=== PATIENT | female | born 1970 | race American Indian/Alaskan Native ===

== ENCOUNTER 2018-08-13 08:17 | Day surgery (SDC) | payer BC ==
[2018-08-13] MEDS ORDERED: VERSED IV ONE (08:44)
[2018-08-13] MEDS ORDERED: SUBLIMAZE IV ONE (08:44)
[2018-08-13 09:36] LABS: Hematocrit 37.5 % (30.3-42.9); Hemoglobin 12.4 gm/dl (10.1-14.3); Mean Corpuscular HGB Conc 33 % (30-34); Mean Corpuscular Volume 99 fl (79-97); Platelet Count 188 K/mm3 (140-440); Red Cell Distribution Width 13.6 % (13.2-15.2)
[2018-08-13 09:38] LABS: INR 0.85 (0.87-1.13)
[2018-08-13 09:39] LABS: Partial Thromboplastin Time 32.4 Sec. (24.2-36.6)
[2018-08-13 10:30] LABS: Total Cells Counted 100
[2018-08-13 10:31] LABS: Platelet Estimate Consistent w Auto; RBC Morphology Normal
--- NOTE | 2018-08-13 11:55 | Cat Scan Report ---
CT BIOPSY LUNG LEFT History: Breast cancer, multiple lung masses. Description of procedure: Informed consent was obtained. Sterile technique was utilized. 1% lidocaine for skin anesthesia. Moderate sedation was accomplished with Versed and fentanyl. The patient was sedated for 20 minutes. Intraobserver time of 15 minutes. Independent cardiorespiratory monitoring by RN. Using CT guidance, a 19-gauge introducer needle was advanced to the leading edge of a 1 cm nodule in the posterior segment of the left lower lobe. 5 separate 2.2 cm 20-gauge core biopsies were obtained. Pathology was present and deemed the sample adequate although scant due to the nodule's small size. The patient tolerated the procedure without difficulty. A followup chest x-ray was ordered. Impression: Successful CT-guided biopsy of a 1 cm left lower lobe nodule.
[2018-08-13] MEDS ORDERED: NORCO 5/325 ONE (12:59)
[2018-08-13 13:01] VITALS: BP 103/69
--- NOTE | 2018-08-13 13:04 | XRay Report ---
AP CHEST: HISTORY: Lung mass, recent CT-guided biopsy Recent CT-guided biopsy of a 1 cm left lower lobe nodule was performed. Followup chest x-ray demonstrates no evidence for pneumothorax. Scattered pulmonary nodules are again noted. The largest lesion measures 3 cm in the medial left lower lobe. Heart and mediastinal structures are unremarkable. The bony structures are grossly intact. Right [id number] is in position. IMPRESSION: No evidence for pneumothorax.
[2018-08-13] MEDS ORDERED: NORCO 5/325 PO ONE (13:53)
[2018-08-13] MEDS ORDERED: FLUSH HEPARIN IV ONE (14:37)
== END 2018-08-13 14:00 | disposition home or self-care (01) ==
LOC: CATHLABREC 08:17 → EDSTATUS 08:30 → CATHLABREC 14:00
PROVIDERS: ATTEND Internal Medicine Hematology & Oncology
DX: C34.92 Malignant neoplasm of unspecified part of left bronchus or lung (principal); C50.811 Malignant neoplasm of overlapping sites of right female breast; F32.9 Major depressive disorder, single episode, unspecified; Z85.89 Personal history of malignant neoplasm of other organs and systems; Z98.890 Other specified postprocedural states; Z79.01 Long term (current) use of anticoagulants; Z79.899 Other long term (current) drug therapy; Z90.10 Acquired absence of unspecified breast and nipple; Z90.710 Acquired absence of both cervix and uterus; Z86.2 Personal history of diseases of the blood and blood-forming organs and certain disorders involving the immune mechanism
CPT/HCPCS: 32405; 36415; 71045; 77012; 85007; 85025; 85610; 85730; 88173; 88305; 88333; 88341; 88342; 88368; 99156; J1642; J2250; J3010; 99152

== ENCOUNTER 2018-11-23 08:45 | Outpatient (CLI) | payer BC ==
[2018-11-23 09:50] LABS: Blood Urea Nitrogen 14 mg/dL (7-17)
--- NOTE | 2018-11-23 14:12 | Cat Scan Report ---
CT CHEST WITH CONTRAST: HISTORY: Malignant neoplasm of overlapping sites of female right breast. COMPARISON: 07/30/18. TECHNIQUE: Helical CT in 1.25mm intervals following IV contrast. Sagittal and coronal reformatted images. FINDINGS: Thyroid gland: Normal. Tracheobronchial tree: Normal. Esophagus: Normal. Heart: Normal. Pericardium: Normal. Mediastinum: There is a new 2.4 x 1.5 cm left hilar lymph node. Lung Thompson: Bilateral pulmonary nodules and masses are again identified which have increased slightly in size and number. The largest mass in the central left lower lobe has increased from 2.6 cm in diameter to 3.3 cm in diameter. There are 4 additional nodules in the left lower lobe measuring up to 1 cm. There are approximately 7 nodules in the right lung with the largest measuring 1.1 cm in the lateral right lower lobe. No evidence for infiltrate or underlying parenchymal disease. Pleural Spaces: Normal. Musculoskeletal: The bony structures are intact. No suspicious bony lesions are identified. Bilateral breast prostheses are intact. IMPRESSION: Mild progression of disease is demonstrated since 07/30/18. Bilateral pulmonary nodules and masses have increased slightly in size and number as described. There is a new left suprahilar lymph node measuring 2.4 x 1.5 cm.
--- NOTE | 2018-11-23 14:19 | Cat Scan Report ---
CT ABDOMEN PELVIS WITH CONTRAST: HISTORY: Malignant neoplasm of overlapping sites of female right breast. COMPARISON: 07/30/18. TECHNIQUE: Helical CT in 1.25mm intervals following IV contrast. Sagittal and coronal reconstructions. FINDINGS: Lung bases: Normal. Liver: Normal. Biliary system: Normal. Pancreas: Normal. Spleen: Normal. Kidneys/ureters/bladder: Within normal limits. 2 cm right renal cyst is again noted. Adrenal glands: Normal. Aorta: Normal. Intestines: Within normal limits. Mild fecal retention is noted. Appendix: Normal. Pelvic viscera: Hysterectomy changes. Ascites: None. Adenopathy: None. Musculoskeletal: There is a new 1.5 cm sclerotic lesion within the L1 vertebral body. There is a new 3.1 cm mixed sclerotic lytic lesion in the L3 vertebral body. There is a new 0.9 cm lytic lesion in the L5 vertebral body. IMPRESSION: At least 3 new bony lesions suspicious for metastasis are identified in L1, L3 and L5. No evidence for visceral metastasis or abdominal adenopathy.
--- NOTE | 2018-11-23 14:32 | Nuclear Medicine Report ---
BONE SCAN: History: Malignant neoplasm of overlapping sites of female right breast. Comparison: CT chest abdomen and pelvis performed the same day. After injection of isotope, gamma camera imaging of the bony system was done. There is physiologic uptake in the renal collecting systems and soft tissues. There is focal abnormal uptake in the left frontal bone. There is focal abnormal uptake throughout the L3 vertebral body. There is subtle focal uptake in the left posterior 10th rib. There is very subtle focal uptake in the mid right femoral shaft. IMPRESSION: At least 4 suspicious areas of abnormal radiotracer uptake are identified on bone scan including the left frontal bone, left 10th posterior rib, L3 vertebral body, and right femoral shaft as described. Smaller bony lesions at L1 and L5 are noted on CT performed the same day but are not demonstrated on bone scan.
== END 2018-11-23 08:46 | disposition home or self-care (01) ==
LOC: NM 08:45
PROVIDERS: ATTEND Internal Medicine Hematology & Oncology
DX: C50.811 Malignant neoplasm of overlapping sites of right female breast (principal); R91.8 Other nonspecific abnormal finding of lung field; Z90.710 Acquired absence of both cervix and uterus
CPT/HCPCS: 36415; 71260; 74177; 78306; 82565; 84520; A9503; Q9967